=== PATIENT | male | born 2000 | race Caucasian/White ===

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

== ENCOUNTER 2021-02-04 17:21 | Emergency (ER) | payer OTHER, SELFPAY ==
--- NOTE | 2021-02-04 17:28 | ED.HEATRA ---
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 Patient denies any loss of consciousness. Patient denies any nausea. Patient denies any other symptoms except a headache that is off and on. Patient states he has taken Motrin and Tylenol the last dose was 11 AM today. Complaint: head pain Related Data Home Medications Medication Instructions Recorded Confirmed No Home Medications 12/12/19 12/12/19 Allergies Allergy/AdvReac Type Severity Reaction Status Date / Time Penicillins Allergy Unknown Rash Verified 12/12/19 19:05 AMOXICILLIN TRIHYDRATE Allergy Mild Rash Uncoded 06/04/18 14:05 Review of Systems Review of Systems: CONSTITUTIONAL: Denies body aches, fever, chills, or sweats. EYES: Denies visual changes, redness, or discharge. ENT: Denies rhinorrhea, congestion, sore throat, or otalgia. CARDIOVASCULAR: Denies chest pain, palpitations, or edema. RESPIRATORY: Denies cough or dyspnea. GASTROINTESTINAL: Denies abdominal pain, nausea, vomiting, or diarrhea. GENITOURINARY: Denies dysuria or hematuria. SKIN: Denies rash, itching, or wounds. MUSCULOSKELETAL: Denies back pain, joint pain, or myalgia. NEUROLOGIC: Denies numbness, tingling, or weakness: + headache PSYCH: Denies depression or anxiety. All systems reviewed & are unremarkable except as noted in HPI and below PMFSH Past Medical History Medical History Concussion 2017 Patulous eustachian tube of both ears Pneumonia 2016, 2017 Seasonal allergies Surgical History Surgical History H/O adenoidectomy History of placement of ear tubes Social History Social History Smoking status: Never smoker Gender identity (if verbalized by the patient): Male Comments At time of signature, I have reviewed and agree with nursing past medical, surgical, social and family history unless otherwise noted. Please see nursing chart for further information. There is no relevant family history pertinent to the presenting complaint Exam Narrative: GENERAL: Well-appearing, well-nourished, and in no acute distress. HEAD: Normocephalic, atraumatic. EYES: EOMI. No redness or drainage. Conjunctivae normal. Pupils equal and reactive to light and accommodation. ENT: Mucous membranes pink and moist. Nares clear. No rhinorrhea. TMs normal bilaterally. NECK: Normal AROM. Supple. No lymphadenopathy; Full ROM, no point tenderness CHEST: No respiratory distress. Clear to auscultation. MUSCULOSKELETAL: No bony tenderness. EXTREMITIES: Normal range of motion. No edema. SKIN: Warm, dry, no rash. Capillary refill normal. Normal skin turgor. NEURO: No focal deficits. Alert and oriented x3. Gait steady; CN II-CN XII grossly intact, normal speech, pronator drift negative, All extremities with normal strength, bilateral hand offender employment specialist equal, negative [place] PSYCH: Normal affect. No signs of depression or anxiety. Course Vital Signs Vital signs: Reviewed. Pt has been instructed to follow up with his PCP regarding his elevated blood pressure today. MDM - Head Injury MDM Narrative Medical decision making narrative: Neuro exam was grossly intact. Patient has no pain with palpation. Patient has full range of motion to neck and spine. Handgrips are equal. All extremities have full range of motion and normal strength. Patient's gait and speech are completely normal. Patient has normal exam Patient will be sent home to increase fluids. Patient can laurie
[2021-02-04 17:29] VITALS: BP 139/81; PULSE 107; RESP 16; TEMP 36.9; O2SAT 100
[2021-02-04 17:30] VITALS: BP 139/81; PULSE 107; RESP 16; TEMP 36.9; O2SAT 100
== END 2021-02-04 17:46 | disposition home or self-care (01) ==
PROVIDERS: Emergency Provider Nurse Practitioner Family
DX: S06.0X0A Concussion without loss of consciousness, initial encounter (principal); W03.XXXA Other fall on same level due to collision with another person, initial encounter; Y93.9 Activity, unspecified
CPT/HCPCS: 99212; G0463

== ENCOUNTER 2021-05-02 13:11 | Emergency (ER) | payer OTHER, SELFPAY ==
--- NOTE | 2021-05-02 13:20 | ED.URI ---
HPI - URI/Sore Throat General Chief Complaint: Upper Respiratory Infection Stated Complaint: scrathcy throat headache Time Seen by Provider: 05/02/21 13:20 Source: patient and RN notes reviewed History of Present Illness HPI Narrative: Patient is a 20-year-old male who presents the urgent care with complaints of a scratchy throat and a headache since . Patient states he has been using throat lozenges. Denies any fever, chills, nausea or vomiting. No other acute complaints. No acute distress noted. Patient aware of the plan of care. Some parts of this dictation were generated by voice recognition software and may contain typographical and/or grammatical inaccuracies. Related Data Home Medications Medication Instructions Recorded Confirmed No Home Medications 12/12/19 05/02/21 Allergies Allergy/AdvReac Type Severity Reaction Status Date / Time Penicillins Allergy Mild Rash Verified 05/02/21 13:25 AMOXICILLIN TRIHYDRATE Allergy Mild Rash Uncoded 05/02/21 13:25 Review of Systems Review of Systems: CONSTITUTIONAL: Denies fever, chills, or sweats. EYES: Denies visual changes, redness, or discharge. ENT: Denies rhinorrhea, congestion, or otalgia. Reports of sore throat CARDIOVASCULAR: Denies chest pain, palpitations, or edema. RESPIRATORY: Denies cough or dyspnea. GASTROINTESTINAL: Denies abdominal pain, nausea, vomiting, or diarrhea. GENITOURINARY: Denies dysuria or hematuria. SKIN: Denies rash or itching. MUSCULOSKELETAL: Denies back pain, joint pain, or myalgia. NEUROLOGIC: Reports of headache All other systems reviewed are negative, except as documented in HPI. [facility] Past Medical History Medical History Concussion 2017 Patulous eustachian tube of both ears Pneumonia 2016, 2017 Seasonal allergies Surgical History Surgical History H/O adenoidectomy History of placement of ear tubes Social History Social History Smoking status: Never smoker Gender identity (if verbalized by the patient): Male Comments At the time of my signature, I reviewed and agree with the nursing past medical, surgical, social, and family history. There is no relevant family history pertinent to the patient complaint. Exam Narrative: GENERAL: This is a well-nourished, well-developed patient, in no apparent distress. HEAD: normocephalic, atraumatic. EYES: PERRL. Sclera clear/white. Vision is grossly intact. EARS: External ears normal, auditory canals clear and without drainage, TMs normal without perforation. Hearing grossly intact. NOSE: External nose normal with no obvious nasal discharge, nares without redness, no rhinorrhea. THROAT: Mucous membranes moist, mild erythema noted posterior pharynx with moderate postnasal drainage NECK: Neck supple CARDIOVASCULAR: Regular rate and rhythm without murmurs, gallops, or rubs. RESPIRATORY: Clear to auscultation. Breath sounds equal bilaterally. No wheezes, rales, or rhonchi. SKIN: warm, intact with no suspicious lesions or rash, good texture and turgor. NEURO: awake, alert, and oriented to person, place and time. There were no obvious focal neurologic abnormalities. EXTREMITIES: No clubbing, cyanosis, or edema. Course Course Level of Care: Express Care Visit Vital Signs Vital signs: Vital Signs Temperature 99 F 05/02/21 13:21 Pulse Rate 91 05/02/21 13:21 Respiratory Rate 18 05/02/21 13:21 Blood Pressure 126/63 05/02/21 13:21 Pulse Oximetry 98 05/02/21 13:21 Temperature 99 F 05/02/21 13:21 Pulse Rate 91 05/02/21 13:21 Respiratory Rate 18 05/02/21 13:21 Blood Pressure 126/63 05/02/21 13:21 Pulse Oximetry 98 05/02/21 13:21 Reviewed MDM - URI/Sore Throat MDM Narrative Medical decision making narrative: Reviewed lab results with the patient. He is aware that strep swab w
[2021-05-02 13:21] VITALS: BP 126/63; PULSE 91; RESP 18; TEMP 37.2; O2SAT 98
== END 2021-05-02 13:50 | disposition home or self-care (01) ==
PROVIDERS: Emergency Provider Nurse Practitioner Family
DX: J02.0 Streptococcal pharyngitis (principal)
CPT/HCPCS: 87880; 99213; G0463

== ENCOUNTER 2021-05-06 16:32 | Emergency (ER) | payer OTHER, SELFPAY ==
--- NOTE | ~2021-05-06 | XR_ITS ---
XR shoulder LT min 2V DATE: 05/06/2021 17:18 INDICATION: Left shoulder injury, with anterior and posterior pain TECHNIQUE: 4 views COMPARISON: None FINDINGS: No fracture or dislocation. Normal alignment at the acromioclavicular and glenohumeral join ts. No periosteal reaction or bone destruction or abnormal soft tissue calcification. IMPRESSION: Negative Reviewed, dictated and finalized at location [facility] IMPRESSION: Negative
[2021-05-06 16:39] VITALS: BP 116/69; PULSE 84; RESP 14; TEMP 36.9; O2SAT 100
--- NOTE | 2021-05-06 16:39 | ED.UPPEXIN ---
HPI - Extremity Injury (Upper) General Chief Complaint: Extremity Injury, Upper Stated Complaint: Left Shoulder Injury Time Seen by Provider: 05/06/21 16:39 Source: patient and RN notes reviewed History of Present Illness HPI narrative: Patient is a 20-year-old male who presents the urgent care with complaints of left shoulder pain. Patient states that it started last after he rolled while in [employer] and heard a pop. Patient states that it then resolved for a few days. States that he went back to use it so yesterday and the pain is increased since then. Patient has been placing ice on the shoulder and using ibuprofen for pain. No other acute complaints. No acute distress noted. Patient aware of the plan of care. Some parts of this dictation were generated by voice recognition software and may contain typographical and/or grammatical inaccuracies. Related Data Home Medications Medication Instructions Recorded Confirmed No Home Medications 12/12/19 05/06/21 Allergies Allergy/AdvReac Type Severity Reaction Status Date / Time Penicillins Allergy Mild Rash Verified 05/06/21 16:46 AMOXICILLIN TRIHYDRATE Allergy Mild Rash Uncoded 05/02/21 13:25 Review of Systems Review of Systems: CONSTITUTIONAL: Denies fever, chills, or sweats. EYES: Denies visual changes, redness, or discharge. ENT: Denies rhinorrhea, congestion, sore throat, or otalgia. CARDIOVASCULAR: Denies chest pain, palpitations, or edema. RESPIRATORY: Denies cough or dyspnea. GASTROINTESTINAL: Denies abdominal pain, nausea, vomiting, or diarrhea. GENITOURINARY: Denies dysuria or hematuria. SKIN: Denies rash or itching. MUSCULOSKELETAL: Reports of left shoulder pain NEUROLOGIC: Denies headache, numbness, or weakness. All other systems reviewed are negative, except as documented in HPI. [facility] Past Medical History Medical History Concussion 2017 Patulous eustachian tube of both ears Pneumonia 2016, 2017 Seasonal allergies Surgical History Surgical History H/O adenoidectomy History of placement of ear tubes Social History Social History Smoking status: Never smoker Gender identity (if verbalized by the patient): Male Comments At the time of my signature, I reviewed and agree with the nursing past medical, surgical, social, and family history. There is no relevant family history pertinent to the patient complaint. Exam Narrative: GENERAL: This is a well-nourished, well-developed patient, in no apparent distress. HEAD: normocephalic, atraumatic. EYES: PERRL. Sclera clear/white. Vision is grossly intact. EARS: External ears normal NOSE: External nose normal with no obvious nasal discharge, nares without redness, no rhinorrhea. THROAT: Mucous membranes moist NECK: Neck supple CARDIOVASCULAR: Regular rate and rhythm without murmurs, gallops, or rubs. RESPIRATORY: Clear to auscultation. Breath sounds equal bilaterally. No wheezes, rales, or rhonchi. SKIN: warm, intact with no suspicious lesions or rash, good texture and turgor. NEURO: awake, alert, and oriented to person, place and time. There were no obvious focal neurologic abnormalities. EXTREMITIES: No obvious dislocation. Positive strong left radial pulse with capillary refill less than 2 seconds. Range of motion limited due to pain. Moderate anterior joint space tenderness with moderate posterior left shoulder/scapular tenderness. Course Course Level of Care: Express Care Visit Vital Signs Vital signs: Vital Signs Temperature 98.4 F 05/06/21 16:39 Pulse Rate 84 05/06/21 16:39 Respiratory Rate 14 05/06/21 16:39 Blood Pressure 116/69 05/06/21 16:39 Pulse Oximetry 100 05/06/21 16:39 Temperature 98.4 F 05/06/21 16:39 Pulse Rate 84 05/06/21 16:39 Respiratory Rate 14 05/06/21 16:39 Blood P
--- NOTE | 2021-05-06 17:20 | PC.NURSE ---
PT DECLINED ICE FOR COMFORT
== END 2021-05-06 17:44 | disposition home or self-care (01) ==
PROVIDERS: Emergency Provider Nurse Practitioner Family
DX: M25.512 Pain in left shoulder (principal)
CPT/HCPCS: 73030; 99213; G0463

== ENCOUNTER 2023-03-26 12:40 | Emergency (ER) | payer OTHER, SELFPAY ==
[2023-03-26 12:57] VITALS: BP 129/72; PULSE 84; RESP 16; TEMP 36.7; O2SAT 99
--- NOTE | 2023-03-26 13:11 | ED.URI ---
HPI - URI/Sore Throat General Chief Complaint: Upper Respiratory Infection Stated Complaint: left ear/throat pain Time Seen by Provider: 03/26/23 12:58 Source: patient and RN notes reviewed Mode of arrival: ambulatory Limitations: no limitations History of Present Illness HPI Narrative: 22-year-old male presents with concern for 3 day history of left-sided ear pain and sore throat. Reports he is taking antihistamines without relief. He denies fever, headache, stomachache, nasal congestion rhinorrhea. MD elicited complaint: sore throat Related Data Allergies Allergy/AdvReac Type Severity Reaction Status Date / Time Penicillins Allergy Mild Rash Verified 03/26/23 13:06 AMOXICILLIN TRIHYDRATE Allergy Mild Rash Uncoded 05/02/21 13:25 Review of Systems Review of Systems: CONSTITUTIONAL: Denies malaise, chills, sweats, or fever. EYES: Denies visual changes, redness, or discharge. ENT: Denies rhinorrhea, congestion, sinus pain. Reports otalgia and sore throat. CARDIOVASCULAR: Denies chest pain, palpitations, or edema. RESPIRATORY: Denies cough. Denies dyspnea. GASTROINTESTINAL: Denies abdominal pain, nausea, vomiting, diarrhea SKIN: Denies rash or itching. MUSCULOSKELETAL: Denies myalgia. NEUROLOGIC: Denies headache. All systems reviewed & are unremarkable except as noted in HPI and below PMFSH Past Medical History Medical History Concussion 2017 Patulous eustachian tube of both ears Pneumonia 2016, 2017 Seasonal allergies Surgical History Surgical History H/O adenoidectomy History of placement of ear tubes Social History Social History Smoking status: Never smoker Living arrangements: with family Occupation/Education: student Gender identity (if verbalized by the patient): Male Comments At time of signature, agree with nursing past medical, surgical, social and family history. There is no relevant family history pertinent to the presenting complaint Exam Narrative: GENERAL: Well-appearing, well-nourished, and in no acute distress. HEAD: Normocephalic EYES: PERRLA, conjunctivae clear ENT: Nares clear. Mucous membranes moist. TM pearly maxwell with sharp light reflex bilaterally; no tragal tenderness. Oropharynx not erythematous without lesions. Tonsils not enlarged and without exudate, no drooling, no hoarseness, no trismus, uvula midline. NECK: Supple. No lymphadenopathy CHEST: Clear to auscultation, breath sounds equal. No wheezing, rhonchi, rales, or stridor. No respiratory distress, speaks in full sentences. HEART: Regular rate and rhythm. No murmur heard. SKIN: Warm, dry, no rash. NEURO: Alert and oriented x3. PSYCH: Normal mood and affect Course Course Emergency Course: Patient is aware of diagnosis, understands and agrees to treatment plan. Anticipatory guidance given. Patient agrees to follow-up as directed and is aware of reasons to seek care at the emergency department. Portions of this record may have been created with voice recognition software Level of Care: Express Care Visit Vital Signs Vital signs: Vital Signs Temperature 98.1 F 03/26/23 12:57 Pulse Rate 84 03/26/23 12:57 Respiratory Rate 16 03/26/23 12:57 Blood Pressure 129/72 03/26/23 12:57 Pulse Oximetry 99 03/26/23 12:57 Oxygen Delivery Room Air 03/26/23 12:57 Temperature 98.1 F 03/26/23 12:57 Pulse Rate 84 03/26/23 12:57 Respiratory Rate 16 03/26/23 12:57 Blood Pressure 129/72 03/26/23 12:57 Pulse Oximetry 99 03/26/23 12:57 Oxygen Delivery Room Air 03/26/23 12:57 Reviewed. MDM - URI/Sore Throat MDM Narrative Medical decision making narrative: Differential diagnosis considered: Desouza virus, strep pharyngitis, allergic rhinitis, upper respiratory tract infection, sinusitis, rhinosinusitis, nasopharyngitis.
== END 2023-03-26 13:25 | disposition home or self-care (01) ==
PROVIDERS: Emergency Provider Nurse Practitioner
DX: J02.9 Acute pharyngitis, unspecified (principal)
CPT/HCPCS: 87081; 87880; 99213; G0463

== ENCOUNTER 2024-05-08 14:28 | Emergency (ER) | payer OTHER, BC, SELFPAY ==
--- NOTE | ~2024-05-08 | XR_ITS ---
EXAMINATION: XR hand RT min 3V, XR wrist RT min 3V DATE: 05/08/2024 16:12 INDICATION: Right hand and wrist pain TECHNIQUE: 1. Posteroanterior, ulnar deviation, oblique, and lateral views of the right wrist were obtained. 2. Dorsal palmar, oblique and lateral views of the right hand were obtained. COMPARISON: None. FINDINGS: Alignment of the hand and wrist is normal. No fracture identified. Joint spaces are normal. No eros ions to suggest inflammatory arthritis. No focal soft tissue swelling. IMPRESSION: 1. Negative right hand and wrist radiographs. Reviewed, dictated and finalized at location A. NTORY MANAGEMENT SPECIALIST IMPRESSION: 1. Negative right hand and wrist radiographs.
[2024-05-08 14:36] VITALS: BP 139/70; PULSE 85; RESP 16; TEMP 36.8; O2SAT 100
--- OUTSIDE RECORDS SUMMARY | 2024-05-08 15:02 | XMS_ITS | Referral Summary ---
Author Organization [facility] Building [address] Address [address] [place] [address] Care Team Providers Care Senior Program Manager Name Role Phone No, Physician Primary Care Provider [phone] Allergies Active Allergy Reactions Criticality Noted Date Comments Penicillins Rash Medium 11/25/2020 Medications No known medications Active Problems No known active problems Social History Tobacco Use Types Packs/Day Years Used Date Smoking Tobacco: Never Personal Safety Answer Date Recorded Getting School Help Needed Not on file 06/11 Sex and Gender Information Value Date Recorded Sex Assigned at Not on file Legal Sex Male 8:50 AM CDT Gender Identity Not on file Sexual Orientation Not on file Last Filed Vital Signs Vital Sign Reading Time Taken Comments Blood Pressure 107/71 11/25/2020 9:13 AM CDT Pulse 80 11/25/2020 9:13 AM CDT Temperature - - Respiratory Rate - - Oxygen Saturation - - Inhaled Oxygen Concentration - - Weight 53.1 kg (117 lb) 11/25/2020 9:13 AM CDT Height 172.7 cm (5' 8 ) 11/25/2020 9:13 AM CDT Body Mass Index 17.79 11/25/2020 9:13 AM CDT Plan of Treatment Not on file Insurance [facility] Care Teams Senior Program Manager Relationship Specialty Start Date End Date No, Physician PCP - General 11/25/20
--- OUTSIDE RECORDS SUMMARY | 2024-05-08 15:02 | XMS_ITS | Clinical Summary ---
Author Organization [facility] Medical Office Building [address] Address [address] [place] [address] Care Team Providers Care Pyrometer Temperature Regulator Name Role Phone No, Physician Primary Care Provider Allergies Active Allergy Reactions Criticality Noted Date Comments Penicillins Rash Medium 11/25/2020 Medications No known medications Active Problems No known active problems Medical History Medical History Date Comments Migraines Social History Tobacco Use Types Packs/Day Years Used Date Smoking Tobacco: Never Personal Safety Answer Date Recorded Getting School Help Needed Not on file 06/11 Sex and Gender Information Value Date Recorded Sex Assigned at Not on file Legal Sex Male 8:50 AM CDT Gender Identity Not on file Sexual Orientation Not on file Obstetrics History Last Filed Vital Signs Vital Sign Reading [...] Plan of Treatment Not on file Insurance [facility] Care Teams Pyrometer Temperature Regulator Relationship Specialty Start Date End Date No, Physician PCP - General 11/25/20
--- NOTE | 2024-05-08 15:48 | ED_ITS ---
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 ROM and neurovascular intact GENERAL: Well-appearing, well-nourished, and in no acute distress. HEAD: Normocephalic, atraumatic. CHEST: Clear to auscultation. ?No respiratory distress. HEART: Regular rate and rhythm.? NEURO: ?Alert and oriented x3. Patient screened in triage and initial orders placed.? ?Additional care and disposition to be based upon?diagnostic testing and treatment. <Ines Ludwig August,N - Last Filed: 05/08/24 15:52> History of Present Illness MD complaint: I AGREE WITH THE ASSESSMENT AND DOCUMENTATION of Polly Abbott NP. <Rachel Goodrich, PERSONNEL ADMINISTRATOR - Last Filed: 05/08/24 17:18> Related Data Allergies/adverse reactions: Allergies Allergy/AdvReac Type Severity Reaction Status Date / Time amoxicillin Allergy Mild Rash, Verified 05/08/24 15:53 Shortness of Breath Penicillins Allergy Mild Rash Verified 03/26/23 13:06 <Ines Ludwig August, PERSONNEL ADMINISTRATOR - Last Filed: 05/08/24 15:52> Review of Systems Review of Systems: All systems reviewed & are unremarkable except as noted in HPI and below <Rachel Goodrich APRN - Last Filed: 05/08/24 17:18> PMFSH Past Medical History Medical History: Medical History Patulous eustachian tube of both ears Pneumonia 2016, 2017 Concussion 2017 Seasonal allergies <Ines Abbott, PERSONNEL ADMINISTRATOR - Last Filed: 05/08/24 15:52> Surgical History Surgical History: Surgical History H/O adenoidectomy History of placement of ear tubes <Ines Abbott APRN - Last Filed: 05/08/24 15:52> Social History Social History: Social History Smoking status: Never smoker Living arrangements: with family Occupation/Education: student Gender identity (if verbalized by the patient): Male <Ines RonaldoRm Abbott APRN - Last Filed: 05/08/24 15:52> Exam Narrative: GENERAL: Well appearing, well-nourished, non-toxic, in no acute distress. HEAD: Normocephalic, atraumatic. NECK: Supple. No adenopathy, no masses. RESPIRATORY: Airway patent, respirations nonlabored. Clear to auscultation bilaterally, no rales, rhonchi, wheezing. CARDIOVASCULAR: Regular rate and rhythm without murmurs, rubs, or gallops. Peripheral pulses 2+ and equal bilaterally. ABDOMINAL: Soft, nontender, nondistended, no hepatosplenomegaly. Normoactive BS. MUSCULOSKELETAL: Moves all extremities. Strength/ROM intact without gross deformities. Full range of motion, but increased pain with palpation and manipulation. Mild edema and bruising. SKIN: Warm, dry, normal color. No rashes. NEURO: A&O X3. Speech clear. Cranial nerves II-XII grossly intact. Steady gait. No ataxic movements. PSYCHIATRIC: Appropriate mood and affect. Normal interaction. <Rachel Goodrich APRN - Last Filed: 05/08/24 17:18> Course Vital Signs Vital signs: Vital Signs Temperature 36.8 C 05/08/24 14:36 Pulse Rate 85 05/08/24 14:36 Respiratory Rate 16 05/08/24 14:36 Blood Pressure 139/70 05/08/24 14:36 Pulse Oximetry 100 05/08/24 14:36 Temperature 36.8 C 05/08/24 14:36 Pulse Rate 85 05/08/24 14:36 Respiratory Rate 16 05/08/24 14:36 Blood Pressure 139/70 05/08/24 14:36 Pulse Oximetry 100 05/08/24 14:36 <Ines Abbott, PERSONNEL ADMINISTRATOR - Last Filed: 05/08/24 15:52> Vital Signs Temperature 36.8 C 05/08/24 14:36 Pulse Rate 85 05/08/24 14:36 Respiratory Rate 16 05/08/24 14:36 Blood Pressure 139/70 05/08/24 14:36 Pulse Oximetry 100 05/08/24 14:36 Temperature 36.8 C 05/08/24 14:36 Pulse Rate 85 05/08/24 14:36 Respiratory Rate 16 05/08/24 14:36 Blood Pressure 139/70 05/08/24 14:36 Pulse Oximetry 100 05/08/24 14:36 <Rachel Goodrich, PERSONNEL ADMINISTRATOR - Last Filed: 05/08/24 17:18> Medical Decision Making MDM Narrative Medical decision making narrative: Labs Ordered: None necessary Imaging Ordered: Right wrist x-ray, right hand x-ray Medications Ordered: Ibuprofen, Tylenol Results: Patient's x-rays indicated Alignment of the hand and wrist is normal. No fracture identified. Joint spaces are normal. No erosions to suggest inflammatory arthritis. No focal soft tissue swelling. Diagnosis: Right soft tissue injury Consults: Orthopedic surgery (outpatient) Patient Education/Shared MDM: Results shared with patient. It was advised that he tried to keep the wrist joint immobilized with an GERMAN wrap over the next 3-4 days. Pt should continue to ice the area. He can take Ibuprofen and Tylenol together short-term for pain and swelling relief. Pt strongly advised to take time off work for his soft tissue injury to heal. He verbalized understanding and is in agreement with plan. Patient's vital signs stable upon time of discharge. All questions answered. <Rachel Goodrich, PERSONNEL ADMINISTRATOR - Last Filed: 05/08/24 17:18> Differential Diagnosis Differential Diagnosis: Right wrist sprain, right hand fracture, right hand soft tissue injury, right scaphoid fracture <Rachel Goodrich, PERSONNEL ADMINISTRATOR - Last Filed: 05/08/24 17:18> Vital Signs Vital Signs: Vital Signs Temperature 36.8 C 05/08/24 14:36 Pulse Rate 85 05/08/24 14:36 Respiratory Rate 16 05/08/24 14:36 Blood Pressure 139/70 01/28/25 14:36 Pulse Oximetry 100 05/08/24 14:36 Temperature 36.8 C 05/08/24 14:36 Pulse Rate 85 05/08/24 14:36 Respiratory Rate 16 05/08/24 14:36 Blood Pressure 139/70 05/08/24 14:36 Pulse Oximetry 100 05/08/24 14:36 <Ines Ludwig August, PERSONNEL ADMINISTRATOR - Last Filed: 05/08/24 15:52> Vital Signs Temperature 36.8 C 05/08/24 14:36 Pulse Rate 85 05/08/24 14:36 Respiratory Rate 16 05/08/24 14:36 Blood Pressure 139/70 05/08/24 14:36 Pulse Oximetry 100 05/08/24 14:36 Temperature 36.8 C 05/08/24 14:36 Pulse Rate 85 05/08/24 14:36 Respiratory Rate 16 05/08/24 14:36 Blood Pressure 139/70 05/08/24 14:36 Pulse Oximetry 100 05/08/24 14:36 <Rachel Goodrich, PERSONNEL ADMINISTRATOR - Last Filed: 05/08/24 17:18> Imaging Data Attestation: I personally reviewed and interpreted this imaging study as follows: <Rachel Goodrich, PERSONNEL ADMINISTRATOR - Last Filed: 05/08/24 17:18> Radiologist's impression: Impressions Hand X-Ray 05/08/24 16:17 IMPRESSION: 1. Negative right hand and wrist radiographs. Wrist X-Ray 05/08/24 16:17 IMPRESSION: 1. Negative right hand and wrist radiographs. <Rachel Goodrich, PERSONNEL ADMINISTRATOR - Last Filed: 05/08/24 17:18> Discharge Plan Discharge Clinical Impression: Sprain and strain of wrist <Ines Ludwig August, PERSONNEL ADMINISTRATOR - Last Filed: 05/08/24 15:52> Patient Disposition: Home, Self-Care <Ines Ludwig August, PERSONNEL ADMINISTRATOR - Last Filed: 05/08/24 15:52> Condition: Stable <Ines Ludwig August, PERSONNEL ADMINISTRATOR - Last Filed: 05/08/24 15:52> Instructions: Antibiotic Form, Wrist Sprain (ED) <Ines Ludwig August, PERSONNEL ADMINISTRATOR - Last Filed: 05/08/24 15:52> Additional Instructions: Please return to the ER with an worsening symptoms. Continue to use ice on your injured joint. Follow-up with your primary care provider in the next 2- 3 days for re-evaluation. Take Tylenol and ibuprofen for short period of time (4-5 days) together as discussed. <Ines Abbott PERSONNEL ADMINISTRATOR - Last Filed: 05/08/24 15:52> Patient Language: Ecuadorean <Ines Abbott PERSONNEL ADMINISTRATOR - Last Filed: 05/08/24 15:52> Prescriptions: New ibuprofen 800 mg tablet 800 mg PO TID PRN (Reason: pain) Qty: 14 0RF No Action pseudoephedrine HCl [12 Hour Decongestant] 120 mg tablet extended release 120 mg PO Q12H PRN (Reason: nasal congestion) Qty: 12 0RF <Ines Abbott PERSONNEL ADMINISTRATOR - Last Filed: 05/08/24 15:52> Follow-up/Referrals: PHYSICIAN,LENS COATER [Primary Care Provider] - <Ines Abbott PERSONNEL ADMINISTRATOR - Last Filed: 05/08/24 15:52> Stand Alone Forms: Work/School Release IP <Ines Abbott PERSONNEL ADMINISTRATOR - Last Filed: 05/08/24 15:52> Time of Disposition: 17:18 <Ines Abbott PERSONNEL ADMINISTRATOR - Last Filed: 05/08/24 15:52> 17:18 <Rachel Goodrich PERSONNEL ADMINISTRATOR - Last Filed: 05/08/24 17:18>
[2024-05-08] MEDS: ACETAMINOPHEN 500 MG TABLET 1000 MG PO (16:57)
[2024-05-08] MEDS: IBUPROFEN 600 MG TABLET PO (16:58)
--- OUTSIDE RECORDS SUMMARY | 2024-05-08 17:33 | XMS_ITS | Clinical Summary ---
Author Organization [facility] [address] Address [address] [place] [address] Care Team Providers Care Toe Closing Machine Tender Name Role Phone No, Physician Primary Care Provider [phone] Allergies Active Allergy Reactions Criticality Noted Date [...] Plan of Treatment Not on file Insurance [facility] Care Teams Toe Closing Machine Tender Relationship Specialty Start Date End Date No, Physician PCP - General 11/25/20
--- OUTSIDE RECORDS SUMMARY | 2024-05-08 17:33 | XMS_ITS | Referral Summary ---
Author Organization [facility] [address] Address [address] [place] [address] Care Team Providers Care Er Manager Name Role Phone No, Physician Primary Care Provider [phone] Allergies Active Allergy Reactions Criticality Noted Date [...] Plan of Treatment Not on file Insurance [facility] Care Teams Er Manager Relationship Specialty Start Date End Date No, Physician PCP - General 11/25/20
== END 2024-05-08 17:31 | disposition home or self-care (01) ==
LOC: ANHED 17:30
PROVIDERS: Emergency Provider Registered Nurse
DX: S63.501A Unspecified sprain of right wrist, initial encounter (principal); W00.0XXA Fall on same level due to ice and snow, initial encounter
CPT/HCPCS: 73110; 73130; 99283; A9270

== ENCOUNTER 2024-12-14 04:53 | Emergency (ER) | payer OTHER, BC, SELFPAY ==
[2024-12-14 04:58] VITALS: BP 148/100; BP 157/91; PULSE 81; PULSE 88; RESP 10; RESP 19; TEMP 37; O2SAT 99
[2024-12-14 05:01] VITALS: BP 148/100; PULSE 92; RESP 16; O2SAT 99
[2024-12-14] MEDS: SODIUM CHLORIDE 0.9% IV 1,000 ML 999 ML IV CONT (05:22)
[2024-12-14 05:25] LABS: Hematocrit 41.7 % (42.0-52.0); Hemoglobin 13.7 g/dL (14.0-18.0); Immature Granulocyte Percent A 0.1 % (0-0.5); Lymphocytes Absolute Auto 3.18 K/mm3 (0.9-3.2); Mean Corpuscular HGB Conc 32.9 g/dl (32-36); Mean Corpuscular Hemoglobin 28.0 pg (26-34); Mean Corpuscular Volume 85.1 fl (80-100); Nucleated Red Blood Cells Absolute Auto 0.000 K/mm3 (0.0-0.012); Nucleated Red Blood Cells Perc 0.0 % (0.0-0.2); Platelet Count Result 271 k/mm3 (150-375); Red Blood Count 4.90 M/mm3 (4.6-6.20); White Blood Count 8.1 K/mm3 (4.5-10.0)
[2024-12-14 05:31] VITALS: BP 126/91; PULSE 80; RESP 12; O2SAT 100
[2024-12-14 05:38] LABS: Alanine Aminotransferase 23 U/L (6-50); Albumin Level 4.8 g/dL (3.5-5.1); Alkaline Phosphatase 52 U/L (38-126); Anion Gap 10 mmol/L (4-12); Aspartate Amino Transferase 28 U/L (17-59); Bilirubin,Total 0.5 mg/dL (0.2-1.3); Blood Urea Nitrogen 16 mg/dL (9-20); Calcium 9.5 mg/dL (8.4-10.2); Carbon Dioxide 25 mmol/L (22-30); Chloride 103 mmol/L (98-107); Estimated CRCL calculation 107 ml/min; Estimated Glomerular Filt Rate > 60; Glucose 96 mg/dL (65-110); Magnesium 2.1 mg/dL (1.6-2.3); Potassium 3.8 mmol/L (3.4-5.0); Sodium 138 mmol/L (137-145); Total Protein 7.8 g/dL (6.3-8.2)
--- NOTE | 2024-12-14 05:48 | ED.GENADULT ---
HPI - General Adult General Chief complaint: Overdose Stated complaint: possible od Time Seen by Provider: 12/14/24 04:54 History of Present Illness HPI narrative: Patient is a 24-year-old male who presents emergency department this evening due to concern for possible drug exposure. Patient is [place] [employer] and states that he was opening an evidence bag that was confiscated from a prisoner. States that when he opened the bag he did not realize that there was a pill inside the bag filled with sentinel that exploded. Patient states that he feels as though he may have gotten some of the fentanyl on his skin and is unsure if he inhaled some of it. States that shortly after while he was riding the report he felt hot, lightheaded, sweaty and tingly and was concerned that the symptoms were from the fentanyl exposure. Prisoner did confirm that the pill did contain fentanyl. Otherwise patient denies any additional symptoms or concerns. Related Data Allergies Allergy/AdvReac Type Severity Reaction Status Date / Time amoxicillin Allergy Mild Rash, Verified 12/14/24 05:08 Shortness of Breath Penicillins Allergy Mild Rash Verified 12/14/24 05:08 Review of Systems Review of Systems: All systems are reviewed and are negative unless stated otherwise in the HPI. FORMERLY [facility], [facility] Past Medical History Medical History Patulous eustachian tube of both ears Pneumonia 2016, 2017 Concussion 2017 Seasonal allergies Surgical History Surgical History H/O adenoidectomy History of placement of ear tubes Social History Social History Smoking status: Never smoker Living arrangements: with family Occupation/Education: student Gender identity (if verbalized by the patient): Male Exam Narrative: General: Alert, awake, afebrile, in no acute distress. HEENT: PERRL, no rhinorrhea, no post nasal drip, oropharynx clear. Neck: Trachea midline, no JVD, no lymphadenopathy. Cardiovascular: Regular rate and rhythm, no murmurs, rubs or gallops, no peripheral edema. Respiratory: Clear to auscultation bilaterally, no tachypnea, no wheezing, no rhonchi, no rubs, no respiratory distress. Abdomen: Soft, nontender, nondistended, no rebound, no guarding, no peritoneal signs. Musculoskeletal: No joint swelling or deformity, normal muscle tone. Skin: No rashes or petechia, no signs of infection. Psychiatric: Alert and oriented, normal behavior and judgment for situation. Neurological: Alert and oriented to person, place, and time. Follows all commands. No focal deficits, speech is clear and fluent. Course Vital Signs Vital signs: Vital Signs Temperature 98.6 F 12/14/24 04:58 Pulse Rate 88 12/14/24 04:58 Respiratory Rate 19 12/14/24 04:58 Blood Pressure 148/100 H 12/14/24 04:58 Pulse Oximetry 99 12/14/24 04:58 Oxygen Delivery Room Air 12/14/24 04:58 Temperature 98.6 F 12/14/24 04:58 Pulse Rate 88 12/14/24 04:58 Respiratory Rate 19 12/14/24 04:58 Blood Pressure 148/100 H 12/14/24 04:58 Pulse Oximetry 99 12/14/24 04:58 Oxygen Delivery Room Air 12/14/24 04:58 Medical Decision Making MDM Narrative Medical decision making narrative: The patient was evaluated by myself in the emergency department. History is obtained from patient who is an independent historian and physical exam was performed. External medical records were reviewed at this time. IV was established and pertinent tests were ordered. Patient was administered 1 L IV fluid bolus with normal saline. Laboratory results obtained revealing no acute process Differential diagnosis considerations include drug exposure, anxiety, acute stress reaction. Patient was informed that if he was exposed to fentanyl, the amount that he may or may not have inhaled or gone on his skin his so meniscal to cause any systemic toxicity. Comorbidities impacting this visit include none. I have evaluated and discussed social determinants of health with the patient that could potentially impact subsequent diagnosis and treatment plans. On repeat assessment of the patient, reevaluation revealed that the patient is doing well and is in no acute distress. Patient symptoms have improved since he arrived to our emergency department. Repeat vital signs were all reviewed and noted to be stable. Differential diagnosis and treatment plan were discussed with the patient at bedside. Patient agrees with discussion and after shared medical decision making agrees with discharge. All questions were answered to the patient's satisfaction. Patient will follow up with his PCP in 3-5 days. Patient was provided with strict return precautions and instructed to return to the emergency department if any new or worsening symptoms develop. The patient was discharged in stable condition. Vital Signs Vital Signs: Vital Signs Temperature 98.6 F 12/14/24 04:58 Pulse Rate 88 12/14/24 04:58 Respiratory Rate 19 12/14/24 04:58 Blood Pressure 148/100 H 12/14/24 04:58 Pulse Oximetry 99 12/14/24 04:58 Oxygen Delivery Room Air 12/14/24 04:58 Temperature 98.6 F 12/14/24 04:58 Pulse Rate 88 12/14/24 04:58 Respiratory Rate 19 12/14/24 04:58 Blood Pressure 148/100 H 12/14/24 04:58 Pulse Oximetry 99 12/14/24 04:58 Oxygen Delivery Room Air 12/14/24 04:58 Lab Data 12/14/24 05:17 12/14/24 05:17 Labs: Lab Results 12/14/24 Range/Units 05:17 WBC 8.1 (4.5-10.0) K/mm3 RBC 4.90 (4.6-6.20) M/mm3 Hgb 13.7 L (14.0-18.0) g/dL Hct 41.7 L (42.0-52.0) % MCV 85.1 (80-100) fl MCH 28.0 (26-34) pg MCHC 32.9 (32-36) g/dl RDW 12.0 (11.5-14.5) % Plt Count 271 (150-375) k/mm3 MPV 9.8 (7.4-10.4) fl Immature Gran % (Auto) 0.1 (0-0.5) % Neut % (Auto) 52.2 (45.5-73.1) % Lymph % (Auto) 39.2 (18.3-44.2) % [place] % (Auto) 7.2 (2.6-8.5) % Eos % (Auto) 0.9 (0-4.4) % Baso % (Auto) 0.4 (0.2-1.2) % Lymph # (Auto) 3.18 (0.9-3.2) K/mm3 [place] # (Auto) 0.6 (0.1-0.6) K/mm3 Eos # (Auto) 0.1 (0-0.3) K/mm3 Baso # (Auto) 0.0 (0.0-0.1) K/mm3 Abs Immat Gran (auto) 0.01 (0.00-0.031) K/mm3 Absolute Neuts (auto) 4.2 (1.3-6.7) K/mm3 Absolute Nucleated RBC 0.000 (0.0-0.012) K/mm3 Nucleated RBC % 0.0 (0.0-0.2) % Sodium 138 (137-145) mmol/L Potassium 3.8 (3.4-5.0) mmol/L Chloride 103 (98-107) mmol/L Carbon Dioxide 25 (22-30) mmol/L Anion Gap 10 (4-12) mmol/L BUN 16 (9-20) mg/dL Creatinine 0.83 (0.7-1.3) mg/dL Estim Creat Clear Calc 107 ml/min Estimated GFR > 60 (59 - ) Glucose 96 (65-110) mg/dL Calcium 9.5 (8.4-10.2) mg/dL Magnesium 2.1 (1.6-2.3) mg/dL Total Bilirubin 0.5 (0.2-1.3) mg/dL AST 28 (17-59) U/L ALT 23 (6-50) U/L Alkaline Phosphatase 52 (38-126) U/L Total Protein 7.8 (6.3-8.2) g/dL Albumin 4.8 (3.5-5.1) g/dL Discharge Plan Discharge Clinical Impression: Fentanyl poisoning Patient Disposition: Home Condition: Improved Instructions: Antibiotic Form Additional Instructions: Please follow-up with your family doctor within the next 3-5 days. Return to the emergency department if any new or worsening symptoms develop Patient Language: Italian Prescriptions: No Action pseudoephedrine HCl [12 Hour Decongestant] 120 mg tablet extended release 120 mg PO Q12H PRN (Reason: nasal congestion) Qty: 12 0RF ibuprofen 800 mg tablet 800 mg PO TID PRN (Reason: pain) Qty: 14 0RF Follow-up/Referrals: UNKNOWN,DOCTOR [Primary Care Provider] - 3 Days Time of Disposition: 05:50
[2024-12-14 06:00] VITALS: BP 122/100; PULSE 77; RESP 5; O2SAT 99
== END 2024-12-14 06:28 | disposition home or self-care (01) ==
PROVIDERS: Emergency Provider Emergency Medicine
DX: T40.411A Poisoning by fentanyl or fentanyl analogs, accidental (unintentional), initial encounter (principal)
CPT/HCPCS: 36415; 80053; 83735; 85025; 96360; 99283; J7030